=== PATIENT | female | born 1960 ===

== ENCOUNTER 2020-09-29 07:48 | Day surgery (SDC) | payer OTHER ==
[~2020-09-29 07:48] MED LIST: COZAAR25 MG PO
[2020-09-29] MEDS ORDERED: IBU600 MG PO (11:13)
== END 2020-09-29 13:40 | disposition home or self-care (01) ==
LOC: CIR.AMB 07:48
PROVIDERS: ATTEND Obstetrics & Gynecology Gynecology
DX: N84.0 Polyp of corpus uteri (principal); Z20.822 Contact with and (suspected) exposure to COVID-19